=== PATIENT | female | born 1990 | race Two or more races ===

== ENCOUNTER 2019-01-02 18:54 | Emergency (ER) | payer MEDICAID, OTHER ==
[~2019-01-02] VITALS: Ht 177.8 cm; Wt 95.0 kg
[2019-01-02 19:40] LABS: BASOPHILS # (AUTO) 0.05 x10^3/uL (0-0.1); BASOPHILS % (AUTO) 0 % (0-1); EOSINOPHILS # (AUTO) 0.13 x10^3/uL (0-0.4); EOSINOPHILS % (AUTO) 1 % (1-7); LYMPHOCYTES # (AUTO) 2.86 x10^3/uL (1-3.4); LYMPHOCYTES % (AUTO) 22 % (22-44); MD NO; MEAN CORPUSCULAR HEMOGLOBIN 33.5 pg (27.0-34.8); MEAN CORPUSCULAR HGB CONC 33.8 g/dL (32.4-35.8); MEAN CORPUSCULAR VOLUME 99.2 fL (80-100); MEAN PLATELET VOLUME 7.1 fL (7.4-10.4); MONOCYTES # (AUTO) 0.86 x10^3/uL (0.2-0.8); MONOCYTES % (AUTO) 6 % (2-9); NEUTROPHILS # (AUTO) 9.43 x10^3/uL (1.8-6.8); NEUTROPHILS % (AUTO) 71 % (42-75); PLATELET COUNT 312 x10^3/uL (130-400); RED BLOOD COUNT 3.74 x10^6/uL (3.82-5.3)
--- NOTE | 2019-01-02 19:42 | NUR ---
PT PRESENTING TO ER FOR BILATERAL PELVIC PAIN INTERMITTENLY RADIATING TO FLANK. STATES + PREG TEST IN OCTOBER BUT NO F/U. NO VB, OR DISCHARGE REPORTED BUT IS HAVING INCREASED URINARY FREQUENCY AND ODOR. CONNECTED TO MONITORING, VSS. UA COLLECTED AND SENT TO LAB. AWAITING TESTING AND RESULTS AT THIS TIME. CALL LIGHT WITHIN REACH
--- NOTE | 2019-01-02 19:48 | NUR ---
TAKEN TO US
[2019-01-02 19:53] LABS: ALANINE AMINOTRANSFERASE 15 U/L (12-78); ALBUMIN 2.7 g/dL (3.4-5.0); ANION GAP 7 mmol/L (5-15); CALCIUM 8.1 mg/dL (8.5-10.1); CHLORIDE 109 mmol/L (98-107); CREATININE 0.66 mg/dL (0.55-1.02)
[2019-01-02 19:58] LABS: MICROSCOPIC AUTO
[2019-01-02 20:10] LABS: ALKALINE PHOSPHATASE 49 U/L (45-117); BILIRUBIN,TOTAL < 0.1 mg/dL (0.2-1.0); TOTAL PROTEIN 6.4 g/dL (6.4-8.2)
[2019-01-02 20:24] LABS: CULTURE INDICATED? YES
[2019-01-02 20:39] VITALS: BP 104/60
--- NOTE | 2019-01-02 20:39 | NUR ---
ALL RESULTS BACK AT THIS TIME, CHART UP FOR RECHECK
== END 2019-01-02 21:02 | disposition home or self-care (01) ==
LOC: ED 20:55
DX: O23.12 Infections of bladder in pregnancy, second trimester (principal); F17.200 Nicotine dependence, unspecified, uncomplicated; R10.30 Lower abdominal pain, unspecified; Z3A.20 20 weeks gestation of pregnancy
CPT/HCPCS: 36415; 76815; 80053; 81001; 84702; 85025; 87086; 93005; 99284